=== PATIENT | male | born 1990 | race Caucasian/White ===

== ENCOUNTER 2018-02-07 10:05 | Inpatient (IN) | payer OTHER ==
[2018-02-07 11:30] LABS: PLATELET COUNT 216 10^3/uL (150-400)
--- NOTE | 2018-02-07 11:49 | EDPHY ---
H & P Stated Complaint: Wants Inpt adm for depression/SI;no plan;newly homeless - Personal History Current Tetanus Diphtheria and Acellular Pertussis (TDAP): Yes - Medical/Surgical History Hx Diabetes: No Other PMH: psych - Social History Smoking Status: Heavy smoker Time Seen by Provider: 02/07/18 10:40 HPI/ROS: CHIEF COMPLAINT: Here for ECT HISTORY OF PRESENT ILLNESS: 27-year-old male history of depression has been receiving ongoing ECT at [address], in the ER for depression and readmission to [address] [place] [address]. He was last scheduled to have ECT 2 days ago however this was aborted because he was smoking cigarettes. He denies suicidal ideation currently. He has been in contact with Dr. Harper Psychiatry regarding admission recommend he come to the emergency department. No self-injurious attempt. No hallucination. PRIMARY CARE PROVIDER: REVIEW OF SYSTEMS: A ten point review of systems was performed and is negative with the exception of the items mentioned in the HPI PAST MEDICAL & SURGICAL HISTORY: Depression. SOCIAL HISTORY: Positive for marijuana. PHYSICAL EXAM (Prior to examination, patient consented to physical exam, hands were washed and my usual and customary physical exam procedures followed) 1) GENERAL: Well-developed, well-nourished, alert and oriented. Appears to be in no acute distress. Comp cooperative 2) HEAD: Normocephalic, atraumatic 3) HEENT: Pupils equal, round, reactive to light bilaterally. Sclera anicteric. 4) NECK: Full range of motion, no meningeal signs. 5) LUNGS: Clear auscultation bilaterally, no wheezes, no rhonchi, no retractions. 6) HEART: Regular rate and rhythm, no murmur, no heave, no gallop. 7) ABDOMEN: No guarding, no rebound, no focal tenderness, negative McBurney's, 8) MUSCULOSKELETAL: Moving all extremities, no focal areas of tenderness, no obvious trauma. No peripheral edema or discoloration. 9) BACK: No obvious trauma, no visual or palpable abnormality. 10) SKIN: No rash, no petechiae. 11) Psychiatric: Patient is oriented X 3, there is no agitation. DIFFERENTIAL DIAGNOSIS: In no particular order including but not limited to depression, suicidal ideation, homicidal ideation (Jim Kendrick) Constitutional: Initial Vital Signs Temperature (C) 36.6 C 02/07/18 10:11 Heart Rate 95 02/07/18 10:11 Respiratory Rate 18 02/07/18 10:11 Blood Pressure 136/91 H 02/07/18 10:11 O2 Sat (%) 97 02/07/18 10:11 O2 Delivery Mode Room Air Allergies/Adverse Reactions: amoxicillin Allergy (Intermediate, Verified 02/07/18 10:14) Hives Home Medications: Medication Instructions Recorded OLANZapine [Zyprexa] 10 mg PO 01/30/18 Venlafaxine Xr [Effexor Xr] 150 mg PO 01/30/18 Medical Decision Making - Diagnostics EKG Interpretation: An EKG obtained and was read and documented in trace view. Please see trace view for full reading and report. Sinus rhythm, no acute ischemic changes ( Gilberto Patel) ED Course/Re-evaluation: 2:00 p.m.: Patient has remained common cooperative. Care turned over to Dr. Steven Denny ,. Awaiting mental health placement. (Jim Kendrick) Re-evaluation at 3:05 p.m.. Patient is stable. Awaiting ECT placement. ( Steven Denny) 4:00 p.m. the patient has been accepted at [address] [place] [address] Harper[address] Transfer paperwork completed. (Gilberto Patel) Care Turn Over: Dr. Patel at 3:10 p.m. (Steven Denny) - Data Points Laboratory Results: Laboratory Results 02/07/18 11:00 02/07/18 11:00 02/07/18 02/07/18 02/07/18 11:00 11:00 11:00 WBC 7.20 10^3/uL 10^3/uL (3.80-9.50) RBC 5.13 10^6/uL 10^6/uL (4.40-6.38) Hgb 16.0 g/dL g/dL (13.7-17.5) Hct 45.3 % % (40.0-51.0) MCV 88.3 fL fL (81.5-99.8) MCH 31.2 pg pg (27.9-34.1) MCHC 35.3 g/dL g/dL (32.4-36.7) RDW 13.4 % % (11.5-15.2) Plt Count 216 10^3/uL 10^3/uL (150-400) MPV 10.4 fL fL (8.7-11.7) Neut % (Auto) 56.0 % % (39.3-74.2) Lymph % (Auto) 33.2 % % (15.0-45.0) Tillman % (Auto) 7.2 % % (4.5-13.0) Eos % (Auto) 2.5 % % (0.6-7.6) Baso % (Auto) 1.0 % % (0.3-1.7) Nucleat RBC Rel Count 0.0 % % (0.0-0.2) Absolute Neuts (auto) 4.03 10^3/uL 10^3/uL (1.70-6.50) Absolute Lymphs (auto) 2.39 10^3/uL 10^3/uL (1.00-3.00) Absolute Monos (auto) 0.52 10^3/uL 10^3/uL (0.30-0.80) Absolute Eos (auto) 0.18 10^3/uL 10^3/uL (0.03-0.40) Absolute Basos (auto) 0.07 10^3/uL 10^3/uL (0.02-0.10) Absolute Nucleated RBC 0.00 10^3/uL 10^3/uL (0-0.01) Immature Gran % 0.1 % % (0.0-1.1) Immature Gran # 0.01 10^3/uL 10^3/uL (0.00-0.10) Sodium 139 mEq/L mEq/L (135-145) Potassium 4.2 mEq/L mEq/L (3.3-5.0) Chloride 106 mEq/L mEq/L (97-110) Carbon Dioxide 23 mEq/l mEq/l (22-31) Anion Gap 10 mEq/L mEq/L (8-16) BUN 12 mg/dL mg/dL (7-23) Creatinine 0.8 mg/dL mg/dL (0.7-1.3) Estimated GFR > 60 Glucose 109 mg/dL H mg/dL (70-100) Calcium 10.0 mg/dL mg/dL (8.5-10.4) Urine Opiates Screen NEGATIVE (NEGATIVE) Urine Barbiturates NEGATIVE (NEGATIVE) Ur Phencyclidine Scrn NEGATIVE (NEGATIVE) Ur Amphetamine Screen NEGATIVE (NEGATIVE) U Benzodiazepines Scrn NEGATIVE (NEGATIVE) Urine Cocaine Screen NEGATIVE (NEGATIVE) U Marijuana (THC) Screen NON-NEGATIVE H (NEGATIVE) Ethyl Alcohol < 10 mg/dL mg/dL (0-10) Departure - Departure Disposition: [facility] IP Clinical Impression: Major depressive disorder, recurrent, severe without psychotic features Condition: Fair Referrals: NONE *PRIMARY CARE P,. [Primary Care Provider] - As per Instructions
--- NOTE | 2018-02-07 15:10 | ASMTTLCEVL ---
TLC Evaluation - Basic Information Evaluation Start Date and 02/07/2018 01:00 PM Time Hospital Status Answers: Voluntary Patient statement Notes: "I'm already getting ECT. This morning had ECT but since I had smoked a cigarette the Doctor refused to complete procedure since on Saturday I required intubation after I had smoked before ECT. I don't have a memory of what happened over the past few days but my mother said I've been abusive. I don't recall. When I left the ECT clinic this morning my mother and I got into an argument. We parted. I decided to go to a hardware store and purchase a rope since I was planning on killing myself. Instead I called my father and he convinced me to come to the ED. I know it will not work if I stay with my mother. It just causes too much stress for me. I feel like this was a close call since I was thinking of ending my life this morning. Narrative Notes: Pt. is a 27 year old, single, male who self presented to the [facility] ED per recommendation of Dr. Haprer and the ECT team along with his father. Pt had serious plan to end his life this morning. He had started ECT treatment for the 1st session on 02/05. Pt. was scheduled for ECT this am but he was unable to have procedure since pt did not follow pre ECT protocol. Pt reported symptoms of Diagnosis History Notes: Pt report a hx of alcohol and marijuana abuse. Pt. reported he started treatment for depression with medications about 2 and 1/2 years ago. Pt reported he started experiencing significant symptoms of depression about 3 years ago and has seen minimal response from medications. Prior suicide attempts Notes: Pt stated he tried to commit suicide a few weeks ago when he tried to hang himself. Pt reported he backed out at the last minute. Prior hospitalizations Notes: Prior hospitalization was 1.5 years ago when he was an inpt. at a [facility] hospital for a 2-4 day period due to depression. Treatment Responses Notes: Pt reported he has experienced significant symptoms of depression over the past few years with minimal results. History of violence Notes: Pt denied any hx of violence either as a victim or an abuser to others. Psychiatrist: Dr. Brsyon Medications (name, dosage, route, freq uency) Notes: Pt. started taking Effexor XR 150 mg about 1.5 years ago. He has been taking Zyprexa for 2.5 years ago. Allergies/Reaction Notes: Pt stated he has an allergy to Amoxicillin. Sleep Notes: Pt reported sleep disturbance which included waking up in the middle of the night and having difficulty falling back to sleep. Appetite Notes: Pt reported he has lack of motivation to eat but denied any weight changes. Medical/Surgical history Notes: Pt denied any medical problems. Substance use history (frequency, intensity, his tory, duration) Notes: Pt reported he started using alcohol Family composition Notes: Pt's parents are . Pt has a brother in [place]. His father lives on the [facility]. Pt is single. Need for family Answers: Yes participation in patient's care Family psychiatric/substance abuse history Notes: Both of pt.'s parents have a hx of depression. Pt's paternal grandfather has a hx of alcohol abuse. Developmental history Notes: Pt denied any hx of ADD or ADHD diagnosis. Pt reported a hx of a concussion in Middle School when he lost consciousness. Pt denied a hx of physical, emotional or sexual abuse during his childhood. Abuse concerns Answers: None Marital status/children Notes: Pt is single with no children Living situation Notes: Pt lives in [facility]. He has been staying temporarily with his mother to undergo ECT and provide additional support. Pt. is planning on returning to the [facility] where he has employment once his symptoms of mood disorder are stabilized. Sexual history/orientation Notes: Pt is not currently in a relationship. Peer support/family strengths Notes: Pt. reports he has some positive friends on the [facility] where he resides. Education level/history Notes: Pt completed his Bachelor's Degree as a [employer] from [employer]. Work history Notes: Pt is employed as a [employer]. He is currently on medical leave and is expecting to resume employment when he is stabilized. Notes: Pt has no hx of involvement. Legal Notes: Pt gave no hx of legal problems. Buddhism/Spiritual Notes: Pt denied any religion or spiritual beliefs that would impact his treatment. Leisure Notes: Pt reported he enjoys doing things outside. Collateral Notes: Collateral was obtained from his ECT records. TLC Evaluation - Mental Status Exam Appearance: Answers: Appropriate Clean Eye Contact: Answers: Good/Direct Mood: Answers: Depressed Sad Affect: Answers: Apathetic Apprehensive Calm Congruent w/ Mood Flat Sad Subdued Behavior: Answers: Cooperative Speech: Answers: Logical Clear Thought Process: Answers: Alert Insight: Answers: Fair Judgement: Answers: Fair Manic Signs/Symptoms Answers: Impulsivity Irritability Mood Swings Depression Answers: Difficulty Concentrating Signs/Symptoms: Diminished Interest Diminished Pleasure Flat Affect Hopelessness Sad Mood Worthlessness Anxiety Signs/Symptoms Answers: Generalized Anxiety Hallucinations: Answers: None Current Stage of Change Answers: Action Pt reported to have Answers: Yes suicidal/self-injuring ideation/behavior? Pt reported to be making Answers: Yes suicidal/self-injuring threats? Pt reported to have Answers: Yes aggression/assault ideation/behavior? Pt reported to be making Answers: Yes aggression/assault threats? Pt exhibits inability to Answers: No care for self/grave disability? Ideation/behavior is Answers: No chronic? Patient has a specific Answers: Yes plan? Pt has access to means to Answers: Yes execute the plan? Ideation involves Answers: Yes serious/lethal intent? Ideation has Answers: No delusional/hallucinatory content? History of Answers: Yes suicidal/self-injuring ideation, behavior, or threats? History of Answers: No aggressive/assaultive ideation, behavior, or threats? History of serious Answers: No physical harm to self/others while in treatment setting? TLC Evaluation - Suicide/Homicide Risk Suicide Risk Factors: Answers: Alcohol/Heavy Drug Use Anxiety/Panic, Severe Calm After Agitated Depression Financial Difficulties Global Insomnia Hopelessness Impulsivity Major Depression Organized Lethal Plan Prior Suicide Attempt(s) Rapid Mood Shifts None Current Suicidal Answers: Yes Ideation? Current Suicidal Ideation Answers: Yes in the Past 48 Hours? Current Suicidal Ideation Answers: Yes in the Past Month? Current Suicidal Answers: Yes Ideation, Worst Ever? Suicide Internal Answers: Absence of Psychosis Protective Factors: Suicide External Answers: Positive Therapeutic Protective Factors: Relationships Ranking of patient's Answers: Severe suicidal risk: Ranking of patient's Answers: Low homicidal risk: TLC Evaluation - Wrap-up BDI Total Score: 47 BDI Question #2 Score: 3 BDI Question #9 Score: 2 BSS Total Score: 25 AXIS I Diagnosis (include DSM-V and ICD-10 codes), must also be entered in [employer], which is the source of truth. Notes: MAJOR DEPRESSIVE DISORDER, RECURRENT, SEVERE 296.33 (F33.2) GENERALIZED ANXIETY DISORDER 300.02 (F41.1) ALCOHOL USE DISORDER, MODERATE 303.90 (F10.20) CANNABIS USE DISORDER, MODERATE 304.30 (F12.20) Evaluation End Date and 02/07/2018 03:10 PM Time (HH:MM): Date Signed: 02/07/2018 03:09 PM Electronically Signed By:Melba Main
--- NOTE | 2018-02-07 17:01 | ASMTTCLDSP ---
TLC Discharge Disposition Disposition: Answers: Admit Disposition Notes: Notes: In consultation with ED Physician Dr. Steven Denny and on-call Psychiatrist, Dr. Jean Claude Harper both concurred that pt meets criteria for inpt. behavioral health admission due to danger to self. Pt will be admitted as a voluntary pt. Pt. has been accepted on [facility]. Pt was provided with [facility] prohibited belongings list. Was patient given the Answers: Yes Inpatient Behavioral Health Prohibited Belongings List while in the ED? For inpatient Dr. Jean Claude Harper admission, the following psychiatrist agreed to accept patient for admission to Behavioral Health ([facility]): Date Signed: 02/07/2018 05:00 PM Electronically Signed By:Melba Main
--- NOTE | 2018-02-07 17:04 | ASMTLCPROG ---
Notes Note: Notes: Pt was accepted as a inpt. voluntary pt under the care of Dr. Jean Claude Harper. Pt was read his rights and is agreeable to admission. Financial services was informed of pt's admission. Date Signed: 02/07/2018 05:03 PM Electronically Signed By:Melba Main
[2018-02-07] MEDS ORDERED: MAG HYDROX/AL HYDROX/SIMETH 30 ML UDCUP PO PRN (19:52)
[2018-02-07] MEDS ORDERED: MAGNESIUM HYDROXIDE 30 ML UDCUP PO PRN (19:52)
[2018-02-07] MEDS ORDERED: NICOTINE POLACRILEX 2 MG GUM B PRN (19:52)
[2018-02-07] MEDS ORDERED: ACETAMINOPHEN 325 MG TAB PO PRN (19:53)
[2018-02-08] MEDS: VENLAFAXINE XR 150 MG CAP PO SCH (09:22)
[2018-02-08] MEDS: OLANZapine 10 MG TAB PO SCH (09:22)
--- NOTE | 2018-02-08 09:32 | GCON ---
[f rep st] CONSULTATION DATE OF CONSULTATION: 02/08/2018 REFERRING PHYSICIAN: Jean Claude Harper MD REASON FOR CONSULTATION: Medical consult. HISTORY OF PRESENT ILLNESS: A 27-year-old male with history of major depression starting at age 14. Was previously on Prozac when he went to college. He has also been on Wellbutrin, Lexapro, Effexor and lithium. He has been undergoing the CT last 02/05/2018. Planned admission to resume this therapy. Currently denies suicidal, homicidal ideations. No fevers, chills, no sweats. No nausea, vomiting, diarrhea. REVIEW OF SYSTEMS: I completed a 10-point review of systems, negative except in HPI. PAST MEDICAL HISTORY: Major depression with depressive disorder. PAST SURGICAL HISTORY: None. SOCIAL HISTORY: THC, tobacco use FAMILY HISTORY: No suicide. Mom and father with depression. ALLERGIES: Amoxicillin. HOME MEDICATIONS: Effexor 150 daily, Zofran as needed, Zyprexa 10 mg daily, [place] as needed. PHYSICAL EXAMINATION: VITAL SIGNS: Temperature 36.5, blood pressure 122/64, heart rate 60s, respirations 14, 95% on room air. GENERAL: Sitting in bed, tearful, grabbing his head. HEENT: PERRLA. Moist mucous membranes. CV: Regular rate and rhythm. LUNGS: Clear. ABDOMEN: Soft, nontender, nondistended. Positive bowel sounds. : No Brand. MUSCULOSKELETAL: 5/5 upper and lower extremity strength. NEURO: 2 through 12 intact. PSYCH: Alert and oriented. Flat, tearful. LABS: WBC from 02/07/2018. WBC 7.2, hemoglobin 16, hematocrit 45, platelets 216. Sodium 139, potassium 4.2, chloride 106, carbon dioxide 23, creatinine 0.8 glucose 109. U-tox positive for marijuana. ASSESSMENT AND PLAN: 1. Major depression disorder: Continue Effexor and Zyprexa. ECT therapy per Behavior Health Team. 2. Marijuana/tobacco use: Counseled on cessation. Jose Manuel gum 3. Diet: Regular. 4. Deep vein thrombosis prophylaxis: Low risk. Thank you for this consult. Please call with questions. /[id number]/MODL MTDD
[2018-02-08] MEDS: LORazepam 1 MG TAB PO PRN (12:50)
--- NOTE | 2018-02-08 15:05 | BAPA ---
[f rep st] ADMISSION PSYCHIATRIC ASSESSMENT DATE OF SERVICE: 02/08/2018 CHIEF COMPLAINT: "I'm already getting ECT. I this morning had ECT, but since I had smoked a cigarette the doctor refused to complete the procedure. I don't have a memory of what happened over the past few days, but my mother said I've been abusive. I don't recall. When I left the ECT clinic this morning and got into an argument with my mom, I decided to go to a hardware store and purchase a rope since I was planning on killing myself. Instead, I called my father. He convinced me to come to the ED. I know it will not work if I stay with my mother. It just causes me too much stress." HISTORY OF PRESENT ILLNESS: Patient is a 27-year-old single man, who presented to the [facility] ED based on the recommendation of his ECT provider, Dr. Harper, and his father. Patient had a serious plan to end his life this morning. He started ECT treatments on Saturday, 02/05. He was scheduled for ECT on Saturday but was unable to have the procedure. The patient reports that when he left the ECT clinic, his mother was angry at him and they got into an argument. Patient was very upset. He claims that he had the intention of going to a hardware store and buying a rope so that he could hang himself. He has had this thought in the past but has never acted on it. Instead of acting on it this time, he called his father. His father convinced him to go to the emergency department. So this episode the patient self-presented to the [facility] ED and was placed on a mental health hold and admitted to the inpatient behavioral health services unit on . When this MD saw the patient on , he was lying curled up in a position in the bed fully clothed with a sheet pulled up to his neck. He refused to make eye contact with the MD. Instead, he lied in bed. Patient was very irritable, angry at his mother and his family in general because he felt like they were not being sufficiently supportive of him. Patient was also very dismissive of his treatment and the plan to get ECT. He states that he was very pessimistic and did not have high expectations for the treatment. He told this MD that he was just waiting for the "fucking treatment to get over so I can kill myself." Patient said that he fully expected the treatment "would be a failure like everything else I've done." Patient was able to contract for safety and stated he had no intention or plan of hurting himself while he was in the hospital. In fact, the patient said that he was interested in completing his course of ECT, although he said he was not very optimistic about the outcome. PAST PSYCHIATRIC HISTORY: The patient tried to commit suicide a few weeks ago when he tried to hang himself, although he says he backed out at the last minute. No other prior suicide attempts. He was hospitalized 1-1/2 years ago at an inpatient facility in [facility]. He said he stayed in the hospital for approximately 3 days. He said the admission was due to depression. He says that he has had worsening depression over the last several years. He has no history of depression as an adolescent. Onset of his depression was mid to late 20s. The patient has been smoking marijuana and drinking alcohol throughout that time. He said since he was a teenager, he has been smoking pot daily and drinking alcohol but does not specify how often or how many drinks he has per occasion. ALLERGIES: Patient is allergic to amoxicillin. CURRENT MEDICATIONS: That the patient takes are Effexor XR 150 mg p.o. daily, olanzapine 10 mg p.o. daily. LABS: Done at [facility] ED: White cell count was 7.20, hemoglobin 16.0, hematocrit 45.3, platelet count 216. Sodium 139, potassium 4.2, chloride 106, BUN 12, creatinine 0.8, glucose is 109, calcium 10.0. Urine drug screen was positive for marijuana. Ethyl alcohol level was undetected. PAST MEDICAL HISTORY: The patient denied any medical problems. FAMILY HISTORY: Both the patient's biological parents have a history of depression. Patient's paternal grandfather also has a history of alcohol dependence. SOCIAL HISTORY: Patient's parents are . He has a brother who lives in [place]. His mother lives in [place]. His father lives on the [facility]. Patient lives in [facility]. He has been staying with his mother in [place] in order to get ECT. He plans to return to the [facility]. 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 He has a bachelor's degree from [employer] [place]. SUBSTANCE USE HISTORY: Patient admits that he has been a regular marijuana user since he was a teenager. He also states that he drinks alcohol to the point of intoxication at least a couple of times a week. Patient reports that he has had difficulty with sleep, including waking up in the middle of the night and having difficulty falling back to sleep. He says that he has started having worsening problems with depression, lack of motivation, poor concentration and focus over the last 3 years. Despite recommendation from his outpatient psychiatrist to reduce or abstain from using drugs and alcohol, the patient has continued to use and at times has increased his use of both marijuana and alcohol over the last 3 years. TRAUMA HISTORY: The patient denies any history of physical, emotional, or sexual abuse. LEGAL HISTORY: Patient has no known legal issues. MENTAL STATUS EXAMINATION: This is an average height, well-developed, appropriately groomed man, who is lying in bed curled up with the sheets pulled over him, wearing street clothes. He has not shaved for several days. He is somewhat disheveled. He is alert and oriented x4, although he refuses to make eye contact with the psychiatrist, just stares at his pillow. His demeanor is irritable, hostile, argumentative at times. His speech rate and volume are normal. His intellectual function appears to be average based upon his fund of knowledge, educational history and employment history. He admits to feeling sad but mostly is irritable and angry. Is very negative towards his family, does not feel that they are supportive enough of him. He is not getting what he wants in terms of effectiveness of his treatment, but mostly that he has not gotten the support that he needs since coming to [place] to get this treatment. He has been living with his mom and says that he wants to go live with his brother because he does not feel like his mom is supportive. Patient denies any symptoms of psychosis. There are no signs or evidence of abhi. Patient states that he is having thoughts of suicide but denies having any plans or intents to hurt himself. He is able to contract for safety in the hospital and has no immediate thoughts about killing himself. All he says is that "once this fucking treatment fails, then I will go off and kill myself." His thought process is linear and goal directed. His insight and judgment are both impaired as evidenced by his unwillingness to modify or change his drug and alcohol use despite negative consequences and despite worsening of his depression, anxiety, mood-related symptoms and his sleep-related problems, all of which have been explained to the patient can be adversely affected by drug and alcohol use. IMPRESSION: 1. Major depressive disorder, recurrent, severe, without psychotic features. 2. Substance-induced mood disorder. 3. Alcohol use disorder, severe. 4. Cannabis use disorder, severe. 5. Psychosocial stressors include conflict with mother, tension with family. Patient has a strong externalized locus of control. He blames his family for things not working out rather than take responsibility for the things that are within his control, ongoing drug use and unresolved sleep and mood-related symptoms. PLAN: 1. Admit patient to the inpatient behavioral services unit on 3 on an M1 hold. 2. Monitor closely for safety. Patient is currently having thoughts of suicide but denies any intent or plan to act on them. He is able to contract for safety here in the hospital. He shows no signs of psychosis or unsafe behavior. 3. We will continue to monitor and observe the patient. He is currently quite agitated and angry about the way he has been treated. He blames the ECT Clinic for not getting his treatment on Saturday, but he also blames his mother for not being supportive enough and says that his family has not done enough to help him. 4. Patient states that he would like to continue on his current medication regimen, which includes Effexor XR 150 mg p.o. daily and olanzapine 10 mg p.o. daily. He says his medications have been somewhat helpful but not helpful enough in alleviating his depression and says that nothing is helping make his suicidal thoughts go away. 5. Estimated length of stay is 3 to 5 days. Patient will continue to have his next ECT treatment on 02/10/2018. It will be up to the patient and his family and Dr. Harper to decide how long his acute course of treatment will last. Patient has only had 1 treatment so far, so he is in the early stages of having his unresolved depression and suicidal thoughts addressed through ECT. /[id number]/MODL MTDD
--- NOTE | 2018-02-08 15:15 | ASMTBHMTP ---
Master Treatment Plan Master Treatment Plan Answers: Depressed Mood with for: Suicidal Ideation Date: 02/08/2018 Diagnosis on Admission: Major Depressive Disorder Expected length of stay: 7-14 days Reason for admission: Notes: Patient is a 27 year old, single male who self presented to the [facility] on the recommendation of ECT staff. Earlier in the day this patient was denied his scheduled ECT treatment because he has been smoking that morning. On his was home he got in an argument with his mother, went to a hardware store to buy a rope to hang himself and instead called his father. His father called ECT staff and they sent him to the ED. Patient's stated presenting problems: Notes: Patient stated he was to get ECT on Saturday, he had a cigarette, that he knew he was not suppose to, he had an argument with his mother and became suicidal with a plan to hang himself. 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 He enjoys outdoor activities. Identify supports outside of hospital: Notes: Patient is currently living with his mother. He has a brother in [place] and his father lives in [place], [place]. He has some supportive friends on the [facility]. Discharge criteria: Notes: Suicide ideation will resolve and patient will have a plan to safely manage recurrent suicidal ideation. Initial disposition plan/considerations: Notes: Patient can discharge home to stay with his mother and Follow up with outpatient ECT treatments. Master Treatment Plan Required Signatures Psychiatrist signature: Answers: Loernzo Lopez MD: RN on-shift signature: Answers: RN: Patient signature: Answers: Patient: Date Signed: 02/08/2018 03:13 PM Electronically Signed By:Ayla Magdaleno
--- NOTE | 2018-02-08 15:20 | ASMTBHDC ---
Notes Note: Notes: Patient was admitted to the inpatient behavioral health unit on 02/07/2018. His Master Treatment Plan was completed and signed by the patient and he was given a copy. During the interview, client was irritable, agitated and at times angry. He reports to staff that he is an 8 out of 10 on the suicide scale. He slept 9.5 hours last night. He is here to have inpatient ECT treatments because he was suicidal with a plan prior to this admission. Date Signed: 02/08/2018 03:20 PM Electronically Signed By:Ayla Magdaleno
--- NOTE | 2018-02-08 16:46 | PDMN ---
Medical Necessity Medical necessity: Pt meets INPT criteria per and [facility] [id number] Major Depressive Disorder, Adult: Inpatient Care (major depressive disorder, recurrent , severe, without psychotic features; M1 hold).
[2018-02-09] MEDS: LORazepam 1 MG TAB PO PRN ×2 (06:45→14:17)
[2018-02-09] MEDS: OLANZapine 10 MG TAB PO SCH (08:46)
[2018-02-09] MEDS: VENLAFAXINE XR 150 MG CAP PO SCH (14:05)
--- NOTE | 2018-02-09 14:14 | ASMTCMCOM ---
CM Note CM Note Notes: CC discussed with the patient that having 5 or more drinks at one time can increase the risk of alcohol-related health problems as well as the risk of interactions with medical concerns and medication regimen. Patient advised to abstain from drinking or limit drinking to less than the recommended limits. Date Signed: 02/09/2018 02:14 PM Electronically Signed By:Yady Villagomez
--- NOTE | 2018-02-09 14:38 | SOAPPROG ---
SOAP Progress Note Assessment/Plan: Assessment: 27 yo with h/o depression x 3.5 years. He also has polysubstance dependence. Started ECT last week. Was admitted b/c he wanted to buy rope and hang himself after getting into argument with his MOC last Saturday. Plan: 02/09/18 14:33 1. Patient had altercation with his MOC on unit yesterday. They were both yelling at each other. Per staff who overheard argument, [facility] called patient an "ingrate" and "entitled" b/c of the way he treated her. Patient was angry at [facility] b/c he claimed she was not supporting him enough. 2. Today, patient had good visit with his BOC and was in slightly better mood than yesterday. 3. Patient looking forward to more ECT. Next treatment has not been scheduled yet after cancelling last ECT. 4. Patient still on M1 Subjective: Met with patient, reviewed chart and d/w staff. Patient very angry and negative this AM. He was lying on floor next to his bed. He said he was waiting for tomorrow's ECT b/c he expected it would make him feel better. He thinks once he has ECT he will not be depressed or have suicidal thoughts any more. MD reminded patient he will still have situational stressors he will have to cope with, such as conflict with his family, stress at work and personal relationships, all of which have been sources of distress for him recently. Patient got into argument with his MOC during her visit yesterday. Staff heard both patient and MOC yelling at each other in patient's room. MOC told patient he was "entitled" and she didn't like the way he had been treating her. Patient said he felt the same way and didn't feel MO was supporting him enough. Patient has been isolating in his room since admission, refusing to attend groups or participate in milieu activities. This afternoon, his BOC came to visit and patient left his room for first time and sat with BOC in day area playing chess. Patient's mood briefly improved while his BOC was here. However, after BOC left and patient found out he wasn't on ECT schedule for tomorrow, he became very sullen and irritable again. He rates his depression "7 out of 10," continues to have SI, but no intent or plan to act on thoughts in hospital. Objective: Vital Signs Temp Pulse Resp BP Pulse Ox 36.6 C 130 H 16 130/87 H 98 02/09/18 06:00 02/09/18 06:40 02/09/18 06:00 02/09/18 06:00 02/09/18 06:00 MSE: Affect: Depressed, angry, irritable Mood: "Bad" TP: Linear, goal- directed TC: Endorses SI, but no intent or plan, able to contract for safety, no psychotic sxs Insight/Judgment: Poor - Time Spent With Patient Time Spent With Patient: 15" - Pending Discharge Pending Discharge Within 24 Hours: No Pending Discharge Within 48 Hours: No ICD10 Worksheet Patient Problems: Problems Problem Status Onset Major depressive disorder, recurrent, severe without psychotic features Acute
[2018-02-10] MEDS ORDERED: CITRIC ACID/SODIUM CITRATE 30 ML UDCUP PO PRN (05:00)
[2018-02-10] MEDS ORDERED: ONDANSETRON DISINTEGRATING 4 MG TAB PO PRN ×2 (05:00→20:29)
[2018-02-10] MEDS ORDERED: NS 1,000 ML IV PRN (05:00)
--- NOTE | 2018-02-10 07:33 | PDHPUP ---
History & Physical Update H&P update statement: This history and physical update is based on an assessment of the patient which was completed after admission or registration (within 24 hours), but prior to the surgery/procedure. H&P update: H&P reviewed & patient examined, no change in patient's condition since H&P completed
--- NOTE | 2018-02-10 07:34 | PDANEPAE ---
ECT Pre Anesthetic Evaluation Allergies/Adverse Reactions: amoxicillin Allergy (Intermediate, Verified 02/07/18 10:14) Hives Patient ID confirmed: Yes H&P reviewed: Yes Pre-anesthetic history reviewed: Yes Heart: regular rate and rhythym, no murmur, rub, or gallop Lungs: no respiratory distress, clear to auscultation Mallampati Score: Class 1 ASA Status: III Home Medications: Medication Instructions Recorded Venlafaxine Xr [Effexor Xr] 150 mg PO DAILY 01/30/18 Hydrocodone/Acetaminophen [[place] 1 - 2 tab PO Q6H PRN 02/07/18 5/325 (*)] OLANZapine [Zyprexa] 10 mg PO DAILY 02/07/18 Ondansetron Odt [Zofran Odt 4 mg 4 mg PO Q6H PRN 02/07/18 (*)] Medication review: completed Patient interviewed: Yes Patient examined: Yes Anesthetic plan discussed with patient: Yes Anesthetic risks discussed with patient: Yes ECT Pre-Anesthetic History - Height & Weight Height: 175.26 cm Weight: 82.418 kg BMI: 26.85 - Anesthesia History Hx Anesthesia Complications (with details): N/A Family Hx Anesthesia Complications: none - Tobacco/Alcohol/Drug Use Smoking Status: Heavy smoker Hx Drug/Substance Abuse: Yes Alcohol Use: Yes - Prior Surgeries/Hospitalizations Prior Surgeries: 2013 Prior Medical Hospitalizations: none - Pulmonary History ECT Hx Asthma: No Hx Abnormal Chest X-Ray: No Hx Oxygen in Use at Home: No - Cardiovascular History Hx Hypertension: No Currently Uses Hypertension Medication: No Hx Arrhythmias: No Hx Palpitations: No Hx Chest Pain: No Hx Coronary Artery / Peripheral Vascular Disease: No Hx Blood Clot: No - Neurologic History Hx Cerebrovascular Accident: Yes Hx CT Scan Or MRI Of The Brain: Yes Hx Epilepsy, Convulsions, Seizures, Or Blackouts: No Hx Frequent Or Severe Headaches: No Hx Numbness: No Hx Neurologic Disorder: No Neurologic History Comment: concussion in middle school and had MRI - Dental History Current Dental Issues: None - Endocrine History Hx Diabetes: No Current Daily Insulin Injections: No Hx Thyroid Problems: No - Renal/Urologic History Hx Renal Disorders: No Hx Urinary Tract Problems: No - Liver History Hx Hepatic Disorders: No - Cancer History Hx Cancer: No - Hematology History Hx Unexplained Bleeding Of Any Type: No Hx Ease Of Bruising: No Hx Anemia: No - Gastrointestinal History Hx Gastroesophogeal Reflux Disease: No Hx Ulcers: No Hx Hiatal Hernia: No Hx Difficulty Swallowing: No - Musculoskeletal Hisory Hx Chronic Pain: No Hx Arthritis: No - Opthalmic History Hx Glaucoma: No Visual Assistive Devices: None Hx Opthalmic Disorders: No - Other Health History Physical Disabililty: No Recent Cough, Cold, or Fever: No Significant Weight Loss In The Last 4 Months: No Possible the Patient Might be : No
--- NOTE | 2018-02-10 07:36 | PDECTPN ---
ECT Progress Note Patient Problems: Problems Problem Status Onset Code Major depressive disorder, recurrent, severe without psychotic features Acute F33.2 Date: 02/10/18 ECT provider: Morales Harper Anesthesia: Shankar Casillas Stimulus dose (%): 30 Pulse width: 0.3 ECT EMG (sec): 37 ECT EEG (sec): 52 ECT treatment type: unilateral QIDS-SR Total Score: 36 QIDS-SR Question #12 Score: 3 Next ECT date: 02/12/18 Next ECT time: 07:30 Home medications: Medication Instructions Recorded Venlafaxine Xr [Effexor Xr] 150 mg PO DAILY 01/30/18 Hydrocodone/Acetaminophen [[place] 1 - 2 tab PO Q6H PRN 02/07/18 5/325 (*)] OLANZapine [Zyprexa] 10 mg PO DAILY 02/07/18 Ondansetron Odt [Zofran Odt 4 mg 4 mg PO Q6H PRN 02/07/18 (*)] Medication review: completed Current treatment plan: acute phase Treatment plan frequency: 3 times per week ECT narrative: Pt seen for continued acute course ECT after interruption due to smoking and then acute suicidality leading hospitalization. Chart reviewed, Dr. Lopez's input is appreciated. He continues to appear angry this morning, hermes, dismissive. He is better later, able to joke a bit. States he is hopeful ECT will "make me feel better." Affect is constricted, stable. Mood is not stated. Rather angry, hostile, guarded. No psychosis. SI persists. Underwent RUL ECT without complication. CCM.
--- NOTE | 2018-02-10 08:49 | POSTANESTH ---
Post Anesthetic Evaluation Cardiovascular Status: Normal, Stable Respiratory Status: Normal, Stable Level of Consciousness/Mental Status: Can Participate in Eval, Alert and Oriented Pain Control: Adequate, Prn Tx Ordered Nausea/Vomiting Control: Adequate, Prn Tx Ordered Complications Possibly Related to Anesthesia: None Noted
[2018-02-10] MEDS: OLANZapine 10 MG TAB PO SCH (09:04)
[2018-02-10] MEDS: VENLAFAXINE XR 150 MG CAP PO SCH (09:04)
--- NOTE | 2018-02-10 11:30 | ASMTCMCOM ---
CM Note CM Note Notes: Pt. reports feeling "better since treatment this morning". Pt. reports no issues with ECT. Pt. stated he slept "poorly", adding it is possibly due to him staying in bed since his admission on Saturday. Pt. reports he hadn't eaten since Saturday, but did have breakfast this morning. Pt. reports SI, rating it 6/10, and has "no immediate plans" to attempt. Pt. denied HI and AVH. Pt. reported "was feeling pretty paranoid I wouldn't actually get ECT and I would be forgotten here". Pt. reports less paranoia since receiving ECT this morning. Pt. presents as alert, calm, poor eye contact, playing with mustache while talking, joking with staff, and with a mostly pleasant demeanor. Staff report pt. sleeping 15 hours last night. Pt. has requested his mother no be allowed on unit. Date Signed: 02/10/2018 11:29 AM Electronically Signed By:Lacey Pitt
[2018-02-10] MEDS ORDERED: HYDROCODONE/APAP 5/325 TAB PO PRN (20:28)
[2018-02-11] MEDS: OLANZapine 10 MG TAB PO SCH (08:15)
[2018-02-11] MEDS: VENLAFAXINE XR 150 MG CAP PO SCH (08:15)
[2018-02-11] MEDS: LORazepam 1 MG TAB PO PRN (11:03)
--- NOTE | 2018-02-11 14:12 | ASMTCMCOM ---
CM Note CM Note Notes: Pt. struggled to describe how he was feeling. Pt. stated he felt "mostly negative". Pt. reports no issues from ECT. Pt. reports SI, "a little. Still think about it", rating himself a 6/10, with no plan. Pt. denied HI, AVH and paranoia. Pt. reports his sleep is "jazz crappy" and requested the speak with MD about his sleep. Pt. stated "If I could sleep through the night that would be a lot better". Pt. later stated he is thinking about moving to [facility] after completing ECT. When CC discussed follow-up care in [place], pt. began to cry and walked away. Date Signed: 02/11/2018 12:32 PM Electronically Signed By:Lacey Pitt
--- NOTE | 2018-02-11 16:54 | SOAPPROG ---
SOAP Progress Note Assessment/Plan: Assessment: Plan: 02/11/18 16:55 Mood: Remains low. This is combined with a continued adolescent regression. Hope to see mellowing of this with treatment to allow psychotherapeutic interventions. Will CCM inc: acute course ECT. Subjective: Pt seen, discussed with staff. REports feeling "bored and pissed." Exercising in room "to get my mind off my mom." Talks in an animated, angry way about his upset with his mom for "throwing a histrionic fit in the doctor's office." I reflected to him that his behaviors were inappropriate and angry and frightening to staff. This makes him angry and he starts pointing his finger in my face and yelling, supposedly to imitate his mother's behaviors. He then abruptly terminates interview stating, "I need to go back to being bored" and sits on his bed with a book in front of his face. Objective: Vital Signs Temp Pulse Resp BP Pulse Ox 36.4 C 89 15 116/79 95 02/11/18 06:00 02/11/18 06:00 02/11/18 06:00 02/11/18 06:00 02/11/18 06:00 02/10/18 02/11/18 02/12/18 05:59 05:59 05:59 Intake Total 1000 Balance 1000 MSE: Volatile, sarcastic, angry, affect. Mood is "bored." TP generally linear. TC reveals no psychosis. Refuses to answer questions re: SI. - Time Spent With Patient Time Spent With Patient: 25" ICD10 Worksheet Patient Problems: Problems Problem Status Onset Major depressive disorder, recurrent, severe without psychotic features Acute
[2018-02-12] MEDS ORDERED: CITRIC ACID/SODIUM CITRATE 30 ML UDCUP PO PRN (05:00)
[2018-02-12] MEDS ORDERED: ONDANSETRON DISINTEGRATING 4 MG TAB PO PRN (05:00)
[2018-02-12] MEDS ORDERED: NS 1,000 ML IV PRN (05:00)
[2018-02-12] MEDS ORDERED: CITRIC ACID/SODIUM CITRATE 30 ML UDCUP ONE (07:04)
[2018-02-12] MEDS ORDERED: ONDANSETRON DISINTEGRATING 4 MG TAB ONE (07:04)
--- NOTE | 2018-02-12 07:33 | PDANEPAE ---
ECT Pre Anesthetic Evaluation Allergies/Adverse Reactions: amoxicillin Allergy (Intermediate, Verified 02/07/18 10:14) Hives Patient ID confirmed: Yes H&P reviewed: Yes Pre-anesthetic history reviewed: Yes Heart: regular rate and rhythym, no murmur, rub, or gallop Lungs: no respiratory distress, clear to auscultation, reduced air movement Mallampati Score: Class 1 ASA Status: III Home Medications: Medication Instructions Recorded Venlafaxine Xr [Effexor Xr] 150 mg PO DAILY 01/30/18 Hydrocodone/Acetaminophen [[place] 1 - 2 tab PO Q6H PRN 02/07/18 5/325 (*)] OLANZapine [Zyprexa] 10 mg PO DAILY 02/07/18 Ondansetron Odt [Zofran Odt 4 mg 4 mg PO Q6H PRN 02/07/18 (*)] Medication review: completed Patient interviewed: Yes Patient examined: Yes Anesthetic plan discussed with patient: Yes Anesthetic risks discussed with patient: Yes ECT Pre-Anesthetic History - Height & Weight Height: 175.26 cm Weight: 82.418 kg BMI: 26.85 - Anesthesia History Hx Anesthesia Complications (with details): N/A Family Hx Anesthesia Complications: none - Tobacco/Alcohol/Drug Use Smoking Status: Heavy smoker Hx Drug/Substance Abuse: Yes Alcohol Use: Yes - Prior Surgeries/Hospitalizations Prior Surgeries: 2013 Prior Medical Hospitalizations: none - Pulmonary History ECT Hx Asthma: No Hx Abnormal Chest X-Ray: No Hx Oxygen in Use at Home: No - Cardiovascular History Hx Hypertension: No Currently Uses Hypertension Medication: No Hx Arrhythmias: No Hx Palpitations: No Hx Chest Pain: No Hx Coronary Artery / Peripheral Vascular Disease: No Hx Blood Clot: No - Neurologic History Hx Cerebrovascular Accident: Yes Hx CT Scan Or MRI Of The Brain: Yes Hx Epilepsy, Convulsions, Seizures, Or Blackouts: No Hx Frequent Or Severe Headaches: No Hx Numbness: No Hx Neurologic Disorder: No Neurologic History Comment: concussion in middle school and had MRI - Dental History Current Dental Issues: None - Endocrine History Hx Diabetes: No Current Daily Insulin Injections: No Hx Thyroid Problems: No - Renal/Urologic History Hx Renal Disorders: No Hx Urinary Tract Problems: No - Liver History Hx Hepatic Disorders: No - Cancer History Hx Cancer: No - Hematology History Hx Unexplained Bleeding Of Any Type: No Hx Ease Of Bruising: No Hx Anemia: No - Gastrointestinal History Hx Gastroesophogeal Reflux Disease: No Hx Ulcers: No Hx Hiatal Hernia: No Hx Difficulty Swallowing: No - Musculoskeletal Hisory Hx Chronic Pain: No Hx Arthritis: No - Opthalmic History Hx Glaucoma: No Visual Assistive Devices: None Hx Opthalmic Disorders: No - Other Health History Physical Disabililty: No Recent Cough, Cold, or Fever: No Significant Weight Loss In The Last 4 Months: No Possible the Patient Might be : No
--- NOTE | 2018-02-12 07:38 | PDECTPN ---
ECT Progress Note Patient Problems: Problems Problem Status Onset Code Major depressive disorder, recurrent, severe without psychotic features Acute F33.2 Date: 02/12/18 ECT provider: Morales Harper Anesthesia: Shankar Casillas Stimulus dose (%): 30 Pulse width: 0.3 ECT EMG (sec): 43 ECT EEG (sec): 81 ECT treatment type: unilateral QIDS-SR Total Score: 30 QIDS-SR Question #12 Score: 3 MMSE Total Score (Max = 21): 20 Next ECT date: 02/14/18 Next ECT time: 07:00 Home medications: Medication Instructions Recorded Venlafaxine Xr [Effexor Xr] 150 mg PO DAILY 01/30/18 Hydrocodone/Acetaminophen [[place] 1 - 2 tab PO Q6H PRN 02/07/18 5/325 (*)] OLANZapine [Zyprexa] 10 mg PO DAILY 02/07/18 Ondansetron Odt [Zofran Odt 4 mg 4 mg PO Q6H PRN 02/07/18 (*)] Medication review: completed Current treatment plan: acute phase Treatment plan frequency: 3 times per week ECT narrative: Pt seen for continued acute course ECT. Remains depressed, hostile, regressed. Refuses to talk to me today. Tells RN, "I shouldn't be here." Will not explain this. Unclear the exact dynamic there except regressive, passive, help- seeking, help-rejecting behavior. He is participating minimally in therapeutic activities on unit, states they are "stupid." Continues to voice strong desire to kill himself. Behaviors are stable. Presents as hostile, staring/glaring at me though unwilling to speak. Affect is constricted, angry, stable. Mood is not stated. No psychosis. SI persists. Underwent RUL ECT without complication. CCM though we will meet tomorrow, possibly with pt's father if he is available to reset expectations for treatment. He needs to stop acting out against either the treatment team or myself. This is an untenable psychological stance and will inhibit progress. If he is unwilling or unable to do this, we will stop ECT and proceed with medication management.
[2018-02-12] MEDS: VENLAFAXINE XR 150 MG CAP PO SCH (09:14)
[2018-02-12] MEDS: OLANZapine 10 MG TAB PO SCH (09:14)
[2018-02-13] MEDS: VENLAFAXINE XR 150 MG CAP PO SCH (08:59)
[2018-02-13] MEDS: OLANZapine 10 MG TAB PO SCH (08:59)
--- NOTE | 2018-02-13 16:42 | SOAPPROG ---
SOAP Progress Note Assessment/Plan: Assessment: Plan: 02/11/18 16:55 Mood: Remains low. This is combined with a continued adolescent regression. Hope to see mellowing of this with treatment to allow psychotherapeutic interventions. Will CCM inc: acute course ECT. 02/13/18 16:42 Mood: Slow improvement with ECT. [facility]. Subjective: Pt seen, discussed with staff. Reports feeling "about the same." Mood remains low. States, "I still can't stop thinking about killing myself. I don't have anything to live for and can't picture a future for myself." Brother tells me that pt is worried about lack of subjective improvement thus far. I discussed course of treatment with pt and emphasized that we are early in the acute course. He voices understanding of this. I also talked to him directly about the need to work together and my sense of anger and resentment coming from him. He denies this, stating that he is invested in treatment and wants to continue acute course. He states he is ready to work more closely with myself and the team. He asks to go to bilateral placement and I agree with this. Objective: Vital Signs Temp Pulse Resp BP Pulse Ox 36.4 C 91 20 129/85 H 96 02/13/18 06:00 02/13/18 06:00 02/13/18 06:00 02/13/18 06:00 02/13/18 06:00 02/12/18 02/13/18 02/14/18 05:59 05:59 05:59 Intake Total 770 Balance 770 MSE: Calm, coop. Affect remains dysphoric, constricted, less hostile. Mood is "really depressed." TP is linear. TC reveals no psychosis. SI persists. - Time Spent With Patient Time Spent With Patient: 25" ICD10 Worksheet Patient Problems: Problems Problem Status Onset Major depressive disorder, recurrent, severe without psychotic features Acute
[2018-02-14] MEDS ORDERED: CITRIC ACID/SODIUM CITRATE 30 ML UDCUP PO PRN (05:00)
[2018-02-14] MEDS ORDERED: ONDANSETRON DISINTEGRATING 4 MG TAB PO PRN (05:00)
[2018-02-14] MEDS ORDERED: NS 1,000 ML IV PRN (05:00)
--- NOTE | 2018-02-14 07:15 | PDECTPN ---
ECT Progress Note Patient Problems: Problems Problem Status Onset Code Major depressive disorder, recurrent, severe without psychotic features Acute F33.2 Date: 02/14/18 ECT provider: Morales Harper Stimulus dose (%): 35 Pulse width: 0.3 ECT EMG (sec): 40 ECT EEG (sec): 69 ECT treatment type: bilateral QIDS-SR Total Score: 40 QIDS-SR Question #12 Score: 3 MMSE Total Score (Max = 21): 20 Next ECT date: 02/17/18 Next ECT time: 07:30 Home medications: Medication Instructions Recorded Venlafaxine Xr [Effexor Xr] 150 mg PO DAILY 01/30/18 Hydrocodone/Acetaminophen [[place] 1 - 2 tab PO Q6H PRN 02/07/18 5/325 (*)] OLANZapine [Zyprexa] 10 mg PO DAILY 02/07/18 Ondansetron Odt [Zofran Odt 4 mg 4 mg PO Q6H PRN 02/07/18 (*)] Medication review: completed Current treatment plan: acute phase Treatment plan frequency: 3 times per week ECT narrative: Pt seen for continued acute course ECT. Mood remains low, but he is calmer, less hostile. Sleep remains discontinuous, non-restful. Had a good conversation with him yesterday in which we agreed to continue ECT under a more cooperative tone. He states there is nothing bothering him, "This is just how I am." Requested to change to bilateral placement. Underwent bilateral ECT without complication. CCM.
[2018-02-14] MEDS: VENLAFAXINE XR 150 MG CAP PO SCH (09:04)
[2018-02-14] MEDS: OLANZapine 10 MG TAB PO SCH (09:04)
[2018-02-14 13:44] VITALS: BP 126/84
--- NOTE | 2018-02-20 16:33 | BDS ---
[f rep st] BEHAVIORAL HEALTH DISCHARGE SUMMARY REASON FOR ADMISSION: The patient is a 27-year-old male with a history of severe, recurren t and treatment resistant major depression who presented to the emergency department of his own accor d after there was a disturbance earlier in the day. He had presented to the outpatient ECT departmen for continued acute course ECT and had not [facility] his previous treatment, he had some rather severe laryngospasm and the procedure was canc eled. The patient became extremely angry, had a very dramatic fight with his mother in the waiting r oom and then stormed off. He made numerous calls that he was going to kill himself and he was eventu ally convinced to come to the emergency department. He presented to the emergency department, stated that he was willing to be admitted and did not feel safe as he had already gone to the [employer] to buy a rope to hang himself, but he wanted to continue the ECT. The patient was seen by Dr. Anine Lopez on 02/08/2018 to complete his admission and a full description of these events can be found i n his admission history dated 02/08/2018. ADMITTING DIAGNOSES: Per Dr. Lopez: 1. Major depressive disorder, recurrent, severe, without psychosis. 2. Substance-induced mood disorder. 3. Alcohol use disorder, severe. 4. Cannabis use disorder, severe. ADMITTING PHYSICAL EXAMINATION: Performed by Dr. Dilma Nascimento reveals no acute physical findings. ADMISSION LABORATORY: CBC was normal. Serum chemistries were normal. Urine drug screen is positive for marijuana. HOSPITAL COURSE: Patient was admitted to the [facility] inpatient unit on an M1 hold. He was seen by me on 02/10/2018, and stated he wanted to continue ECT. He was somewhat mel doffish and guarded and appeared even hostile at times. I was able to talk with him on several occas ions to try to understand why he was so angry about us not performing the ECT. He was unable to adeq uately process this and stated that he essentially just has a volatile temper and this was a trigger for him. He displayed so a lot of adolescent behavior and reasoning and would wax and wane in his ov erall level of cooperation. There was one point in the stay where I sat down with him and said that I would not proceed any further if he was not more agreeable to essentially a team effort and was abl e to curb some of his oppositionality. He stated that he would do this and was more cooperative afte r that. The patient had 3 ECT treatments during his inpatient stay. After the 3rd treatment, we were able to have a family meeting with his father and brother. His father who had come in from the [facility] and rented an apartment locally where he planned to stay during the rest of the patient's treatments. The patient stated that he did not want to have contact with his mother, though she did visit on on e occasion and they had a very loud argument. At the time of discharge, his plan was to live with hi s father, complete the treatments and avoid immediate contact with his mother. No medication changes were made during his stay. CONDITION AT DISCHARGE: Stable. His affect remained dysphoric, constricted, but he felt calmer and was less irritable, and oppositional. DISCHARGE MEDICATIONS: 1. Effexor XR 150 mg daily. 2. Zofran 4 mg as needed every 6 hours. 3. Zyprexa 10 mg h.s. 4. [place] 5/325 1 every 4 hours as needed for headache. DISCHARGE DIAGNOSES: 1. Major depressive disorder, recurrent, severe, without psychosis with treatment resistant features . 2. Tobacco use disorder, severe cannabis use disorder, moderate. 3. Problems with employment, chronic illness, recurrent illness, family conflicts. DISPOSITION: Patient left the hospital with his father to go to the apartment that he rented. FOLLOWUP: With myself on 02/17/2018 to continue outpatient acute course ECT. ATTITUDE: To discharge was positive. LEGAL COURSE: Patient was admitted on an M1 hold, and converted to a voluntary status. PENDING LABS OR STUDIES: There were no pending labs or studies at the time of discharge. /[id number]/MODL
== END 2018-02-14 14:50 | disposition home or self-care (01) | DRG 885 ==
LOC: BBEH 19:15
PROVIDERS: ADMIT Psychiatry & Neurology Psychiatry; ATTEND Psychiatry & Neurology Psychiatry
PROC: GZB2ZZZ Electroconvulsive Therapy, Bilateral-Single Seizure (ICD-10-PCS; principal; 2018-02-10)
DX: F33.2 Major depressive disorder, recurrent severe without psychotic features (principal); R45.851 Suicidal ideations; F17.210 Nicotine dependence, cigarettes, uncomplicated; F12.188 Cannabis abuse with other cannabis-induced disorder; F10.14 Alcohol abuse with alcohol-induced mood disorder; Z81.8 Family history of other mental and behavioral disorders; Z59.0 Homelessness; Z63.8 Other specified problems related to primary support group
CPT/HCPCS: 80305; G0480